=== PATIENT | female | born 1945 | race Caucasian/White ===

== ENCOUNTER 2016-06-11 09:08 | Emergency (ER) | payer MEDICARE ==
[2016-06-11 11:12] LABS: HEMOGLOBIN 14.3 gm/dl (12.3-15.3); RED BLOOD COUNT 5.01 M/UL (4.00-5.10); WHITE BLOOD COUNT 6.5 K/UL (4.5-11.0)
[2016-06-11 12:04] LABS: BUN/CREATININE RATIO 11 (0-10)
== END 2016-06-11 17:51 | disposition home or self-care (01) ==
LOC: ER1 09:08
PROVIDERS: Physician Assistant
DX: R55 Syncope and collapse (principal); R07.9 Chest pain, unspecified; R05 Cough; R42 Dizziness and giddiness; R53.1 Weakness; Z88.2 Allergy status to sulfonamides; Z88.6 Allergy status to analgesic agent; Z90.49 Acquired absence of other specified parts of digestive tract
CPT/HCPCS: 36415; 70450; 71010; 80053; 81001; 82550; 82553; 83874; 84484; 85025; 93005; 96360; 99284

== ENCOUNTER 2016-10-07 15:44 | Emergency (ER) | payer OTHER, MEDICARE ==
[2016-10-07 17:10] LABS: HEMOGLOBIN 14.3 gm/dl (12.3-15.3); RED BLOOD COUNT 5.01 M/UL (4.00-5.10); WHITE BLOOD COUNT 9.4 K/UL (4.5-11.0)
[2016-10-07 17:32] LABS: BUN/CREATININE RATIO 11 (0-10)
== END 2016-10-07 18:17 | disposition home or self-care (01) ==
LOC: ER1 15:44
PROVIDERS: Emergency Medicine
DX: R06.00 Dyspnea, unspecified (principal); R42 Dizziness and giddiness; E87.6 Hypokalemia; J44.9 Chronic obstructive pulmonary disease, unspecified; Z88.2 Allergy status to sulfonamides; Z88.6 Allergy status to analgesic agent
CPT/HCPCS: 36415; 71010; 80053; 82550; 82553; 83874; 83880; 84484; 85025; 85379; 87081; 87880; 93005; 96374; 99284; J2930